=== PATIENT | female | born 1975 | race Caucasian/White ===

== ENCOUNTER 2024-11-15 16:39 | Emergency (ER) | payer OTHER ==
[~2024-11-15] VITALS: Ht 162.6 cm; Wt 124.0 kg
[2024-11-15 20:09] VITALS: BP 155/86
== END 2024-11-15 20:10 | disposition home or self-care (01) ==
LOC: ED 16:39
DX: S63.501A Unspecified sprain of right wrist, initial encounter (principal); I10 Essential (primary) hypertension; X58.XXXA Exposure to other specified factors, initial encounter; Z88.2 Allergy status to sulfonamides
CPT/HCPCS: 73110; 99283